=== PATIENT | female | born 1975 | race Two or more races ===

== ENCOUNTER 2017-11-10 17:44 | Emergency (ER) | payer BC ==
[~2017-11-10] VITALS: Ht 157.5 cm; Wt 56.7 kg
--- NOTE | 2017-11-10 17:47 | NUR ---
PT TO ER BED 13 C/O DIFFUSE ABDOMINAL AND GENERALIZED BODY ACHES. DENIES N/V/D. 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 PLACED ON MONITOR. AWAITING MD COMBS.
--- NOTE | 2017-11-10 18:45 | NUR ---
HUMBERTO ODOM AT BEDSIDE FOR EVAL.
--- NOTE | 2017-11-10 18:55 | NUR ---
IV LINE STARTED BLOOD DRAWN AND SENT TO LAB.
[2017-11-10 18:59] LABS: BASOPHILS % (AUTO) 0.5 % (0.0-2.0); EOSINOPHILS % (AUTO) 0.5 % (0.0-6.0); HEMATOCRIT 41 % (33-45); HEMOGLOBIN 13.9 g/dL (11.5-14.8); LYMPHOCYTES % (AUTO) 21.2 % (20.0-44.0); MEAN CORPUSCULAR HEMOGLOBIN 30 PG (26.0-33.0); MEAN CORPUSCULAR HGB CONC 34 g/dl (31.0-36.0); MEAN CORPUSCULAR VOLUME 88 fL (82-100); MONOCYTES % (AUTO) 7.6 % (2.0-12.0); NEUTROPHILS % (AUTO) 70.2 % (43.0-81.0); PLATELET COUNT (AUTO) 316 /CMM (150-450); RDW COEFFICIENT OF VARIATION 13.5 (11.5-15.0); RED BLOOD CELL COUNT(AUTO) 4.63 MIL/uL (4.0-5.2); WHITE BLOOD COUNT (AUTO) 7.2 K/uL (4.3-11.0)
[2017-11-10 19:00] LABS: LYMPHOCYTES # (AUTO) 1.5 /CMM (0.8-4.8); MONOCYTES # (AUTO) 0.5 /CMM (0.1-1.30); NEUTROPHILS # (AUTO) 5.2 /CMM (1.8-8.9)
[2017-11-10] MEDS ORDERED: IV NS 0.9% 1,000 ML BAG IV ONE (19:00)
[2017-11-10] MEDS ORDERED: MORPHINE SULFATE INJ 2 MG/ML DISP.SYRIN IV ONE (19:00)
[2017-11-10] MEDS ORDERED: ONDANSETRON HCL/PF 4 MG/2 ML VIAL IVP ONE (19:00)
[2017-11-10] MEDS ORDERED: MORPHINE SULFATE INJ 4 MG/ML DISP.SYRIN ONE (19:05)
[2017-11-10] MEDS ORDERED: ONDANSETRON HCL/PF 4 MG/2 ML VIAL ONE (19:05)
[2017-11-10 19:10] LABS: CALCIUM, SERUM 9.3 mg/dL (8.5-10.1); CREATININE 0.6 mg/dL (0.6-1.3)
[2017-11-10 19:18] LABS: APPEARANCE,URINE Clear (CLEAR); BILIRUBIN,URINE Negative (NEGATIVE); BLOOD, URINE Negative Ery/uL (NEGATIVE); COLOR,URINE Yellow (YELLOW); KETONES,URINE Negative (NEGATIVE); LEUKOCYTE ESTERASE ,URINE Negative (NEGATIVE); NITRITE, URINE Negative (NEGATIVE); PROTEIN,URINE Negative (NEGATIVE); UGLUCOSE Negative (NEGATIVE); UROBILINOGEN,URINE 0.2 EU/dL (0.2)
[2017-11-10 19:21] LABS: ALBUMIN 3.9 g/dL (3.4-5.0); BILIRUBIN,DIRECT 0.1 mg/dL (0.0-0.2); BILIRUBIN,TOTAL 0.3 mg/dL (0.2-1.0); TOTAL PROTEIN, SERUM 7.5 g/dL (6.4-8.2)
--- NOTE | 2017-11-10 19:58 | NUR ---
Patient discharged to home in stable condition. Written and verbal after care instructions given. Patient verbalizes understanding of instruction.IV removed. Catheter intact and site benign. Pressure and 4x4 applied to site. No bleeding noted.
[2017-11-10 20:00] VITALS: BP 115/70
== END 2017-11-10 20:01 | disposition home or self-care (01) ==
LOC: ER 17:45
DX: R10.2 Pelvic and perineal pain (principal)
CPT/HCPCS: 36415; 80048-TC; 80076-TC; 81000-TC; 83690-TC; 84703-TC; 85025-TC; A4606; J2270; J2405; J7030; Z7610

== ENCOUNTER 2024-08-22 16:40 | Emergency (ER) | payer BC, MEDICAID ==
[~2024-08-22] VITALS: Ht 154.9 cm; Wt 57.2 kg
[2024-08-22 16:45] VITALS: BP 118/69; TEMP 98.3; O2SAT 99
== END 2024-08-22 17:22 | disposition home or self-care (01) ==
LOC: ER 16:44
DX: R51.9 Headache, unspecified (principal)

== ENCOUNTER 2025-02-21 22:41 | Emergency (ER) | payer MEDICAID ==
[~2025-02-21] VITALS: Ht 157.5 cm; Wt 59.0 kg
[2025-02-22 00:26] LABS: PLATELET COUNT (AUTO) 242 K/uL (150-450); RED BLOOD CELL COUNT(AUTO) 4.52 MIL/uL (4.0-5.2); RED CELL DISTRIBUTION WIDTH 13.9 % (11.5-15.0); WHITE BLOOD COUNT (AUTO) 5.6 K/uL (4.3-11.0)
[2025-02-22 00:41] LABS: CALCIUM, SERUM 8.7 mg/dL (8.5-10.1); CREATININE 0.7 mg/dL (0.6-1.3); SODIUM SERUM 141 mmol/L (136-145); UREA NITROGEN, BLOOD 13 mg/dL (7-18)
[2025-02-22 00:47] LABS: ASPARTATE AMINOTRANSFERASE 21 U/L (15-37); TOTAL PROTEIN, SERUM 7.6 g/dL (6.4-8.2)
[2025-02-22 00:48] LABS: APPEARANCE,URINE CLEAR (CLEAR); BLOOD, URINE NEGATIVE Ery/uL (NEGATIVE); LEUKOCYTE ESTERASE ,URINE NEGATIVE (NEGATIVE); NITRITE, URINE NEGATIVE (NEGATIVE); UGLUCOSE NEGATIVE (NEGATIVE)
[2025-02-22 01:03] LABS: INR 0.98 (0.91-1.10)
[2025-02-22 01:20] VITALS: BP 123/69; TEMP 98; O2SAT 100
== END 2025-02-22 01:25 | disposition home or self-care (01) ==
LOC: ER 22:48
DX: R42 Dizziness and giddiness (principal)
CPT/HCPCS: 36415; 70450-TC; 71045-TC; 80048-TC; 80076-TC; 82962-TC; 84484-TC; 85025-TC; 85730-TC

== ENCOUNTER 2025-03-11 13:08 | Emergency (ER) | payer MEDICAID ==
[~2025-03-11] VITALS: Ht 157.5 cm; Wt 59.0 kg
[2025-03-11 14:00] LABS: ADD URINE CULTURE YES; APPEARANCE,URINE CLEAR (CLEAR); BLOOD, URINE 1+ Ery/uL (NEGATIVE); LEUKOCYTE ESTERASE ,URINE 3+ (NEGATIVE); NITRITE, URINE NEGATIVE (NEGATIVE); PREGNANCY TEST URINE QUAL NEGATIVE (NEGATIVE); SQUAMOUS EPITHELIAL CELL,UR Rare /HPF (None Seen); UGLUCOSE NEGATIVE (NEGATIVE)
[2025-03-11] MEDS ORDERED: SULFAMETH/TRIMETH 800/160 MG 1 UDTAB TABLET ONE (14:11)
[2025-03-11] MEDS ORDERED: ACETAMINOPHEN ES 500 MG TABLET ONE (14:11)
[2025-03-11] MEDS: SULFAMETH/TRIMETH 800/160 MG 1 UDTAB TABLET PO ONE (14:14)
[2025-03-11] MEDS: ACETAMINOPHEN ES 500 MG TABLET PO ONE (14:15)
[2025-03-11] MEDS ORDERED: SULF1TAB48 PO (14:24)
[2025-03-11 14:56] VITALS: BP 117/81; TEMP 98.1; O2SAT 100
== END 2025-03-11 14:56 | disposition home or self-care (01) ==
LOC: ER 13:10
DX: N39.0 Urinary tract infection, site not specified (principal)
CPT/HCPCS: 81001; 84703-TC; 87086-TC